=== PATIENT | male | born 1980 | race Caucasian/White ===

== ENCOUNTER 2024-10-26 12:32 | Inpatient (IN) | payer OTHER ==
[2024-10-26 13:29] LABS: #Basophils 0.04 10x3/uL (0.0-0.2); %Basophils 0.3 % (0.0-1.0); %Eosinophils 0.4 % (0.0-10.0); %Lymphocytes 8.1 % (21.0-51.0); %Monocytes 4.9 % (0.0-10.0); Hematocrit 46.1 % (42.0-52.0); Hemoglobin 15.9 g/dL (14.0-18.0); Mean Corpuscular HGB CONC 34.5 g/dL (32.0-36.0); Mean Corpuscular Hemoglobin 29.8 pg (27.0-31.0); Mean Corpuscular Volume 86.3 fL (78.0-98.0); Platelet Count 351 10x3/uL (130-400); Red Blood Cell (RBC) Count 5.34 mill/uL (4.70-6.10)
[2024-10-26 13:43] LABS: ALT (SGPT) 37 U/L (8-55); AST (SGOT) 24 U/L (5-34); Albumin 4.5 g/dL (3.5-5.0); Alkaline Phosphatase 63 U/L (40-110); Anion Gap 14 mmol/L (10-20); BUN (Urea Nitrogen) 10 mg/dL (8.9-20.6); Bilirubin, Total 0.4 mg/dL (0.2-1.2); Calc. Creatinine Clearance 0 mL/min (70-130); Calcium 9.7 mg/dL (7.8-10.44); Carbon Dioxide 19 mmol/L (22-29); Chloride 107 mmol/L (98-107); Estimated GFR 105; Globulin 3.4 g/dL (2.4-3.5); Glucose 102 mg/dL (70-105); Protein, Total 7.9 g/dL (6.0-8.3); Sodium 136 mmol/L (136-145)
[2024-10-26] MEDS ORDERED: Dexamethasone 4 MG TAB ONE (13:48)
[2024-10-26] MEDS ORDERED: Acetaminophen 325 MG TAB PO PRN (15:59)
[2024-10-26] MEDS ORDERED: Dextrose 50% Abboject 50 ML SYRINGE SLOW IVP PRN (15:59)
[2024-10-26] MEDS ORDERED: Glucagon 1 MG/ML KIT IM PRN (15:59)
[2024-10-26] MEDS ORDERED: Dextrose 5% in Water 1,000 ML IV PRN (15:59)
[2024-10-26] MEDS ORDERED: Ondansetron ODT 4 MG TAB PO PRN (16:06)
[2024-10-26] MEDS ORDERED: hydrALAZINE 20 MG/ML VIAL SLOW IVP PRN (16:06)
[2024-10-26] MEDS ORDERED: Pregabalin 75 MG CAP ONE (16:18)
[2024-10-26] MEDS ORDERED: Pantoprazole 40 MG DR.TAB ONE (16:18)
[2024-10-26 18:53] VITALS: BMI 30.1
[2024-10-26 19:28] LABS: Prothrombin Time 13.1 sec (12.0-14.7)
[2024-10-26 19:29] LABS: PTT 26.8 sec (22.9-36.1)
[2024-10-26] MEDS: Pregabalin 75 MG CAP PO SCH (20:19)
[2024-10-26] MEDS: Pantoprazole 40 MG VIAL IVP SCH (20:19)
[2024-10-26] MEDS: Dexamethasone 4 mg/ml Vial SLOW IVP SCH (20:19)
[2024-10-26] MEDS: Famotidine/PF 20 mg/2ml Vial SLOW IVP SCH (20:19)
[2024-10-26] MEDS: Morphine 2 MG/ML VIAL SLOW IVP PRN (22:04)
[2024-10-26] MEDS: Ondansetron PF 4 MG/2 ML Vial IVP PRN (22:05)
[2024-10-27 02:22] LABS: #Basophils Less than 0.03 10x3/uL (0.0-0.2); #Eosinophils Less than 0.03 10x3/uL (0.0-0.7); %Basophils 0.2 % (0.0-1.0); %Lymphocytes 9.2 % (21.0-51.0); %Monocytes 2.5 % (0.0-10.0); %Neutrophils 87.7 % (42.0-75.0); Hematocrit 45.7 % (42.0-52.0); Hemoglobin 15.2 g/dL (14.0-18.0); Mean Corpuscular HGB CONC 33.3 g/dL (32.0-36.0); Mean Corpuscular Hemoglobin 29.2 pg (27.0-31.0); Mean Corpuscular Volume 87.9 fL (78.0-98.0); Mean Platelet Volume 9.1 fL (7.4-10.4); Platelet Count 342 10x3/uL (130-400)
[2024-10-27 02:41] LABS: Anion Gap 14 mmol/L (10-20); BUN (Urea Nitrogen) 11 mg/dL (8.9-20.6); Calc. Creatinine Clearance 150 mL/min (70-130); Calcium 9.6 mg/dL (7.8-10.44); Carbon Dioxide 21 mmol/L (22-29); Chloride 104 mmol/L (98-107); Estimated GFR 109; Glucose 167 mg/dL (70-105); Sodium 135 mmol/L (136-145)
[2024-10-27] MEDS: Morphine 2 MG/ML VIAL SLOW IVP SCH (05:37)
[2024-10-27] MEDS: HYDROcodone/Acetaminophen 5/325 mg Tablet PO PRN (10:42)
[2024-10-27] MEDS ORDERED: CEFAZOLIN 2 GM in Sodium Chloride 0.9% 100 ML IVPB SCH (12:00)
[2024-10-27] MEDS ORDERED: Thrombin 5000 UNITS/5 ML VIAL ONE (12:22)
[2024-10-27] MEDS ORDERED: fentaNYL PF 100 MCG/2 ML SYRINGE ONE (12:40)
[2024-10-27] MEDS ORDERED: PHENYLEPHRINE-NS 100 MCG/ML 10 ML SYRINGE ONE (12:40)
[2024-10-27] MEDS ORDERED: Ondansetron PF 4 MG/2 ML Vial ONE (12:40)
[2024-10-27] MEDS ORDERED: Rocuronium Bromide 10 MG/ML (10ML VIAL) ONE ×2 (12:40→13:59)
[2024-10-27] MEDS ORDERED: Dexamethasone 20 MG/5 ML VIAL ONE (12:40)
[2024-10-27] MEDS ORDERED: Glycopyrrolate 0.2 MG/ML 5 ML SYRINGE ONE (12:40)
[2024-10-27] MEDS ORDERED: Lidocaine 1% PF 5 ML VIAL ONE (12:40)
[2024-10-27] MEDS ORDERED: PROPOFOL 20 ML ONE (12:41)
[2024-10-27] MEDS ORDERED: Midazolam HCl 2 mg/2 ml Vial ONE (12:41)
[2024-10-27] MEDS ORDERED: HYDROmorphone 2 MG/ML VIAL ONE (12:45)
[2024-10-27] MEDS ORDERED: Sodium Chloride 0.9% 100 ML ONE (12:46)
[2024-10-27] MEDS ORDERED: CEFAZOLIN 1 GM VIAL ONE (12:46)
[2024-10-27] MEDS ORDERED: Vancomycin 1 GM VIAL ONE (12:58)
[2024-10-27] MEDS ORDERED: Labetalol HCl 100 MG/20 ML VIAL ONE (13:45)
[2024-10-27] MEDS ORDERED: SUGAMMADEX SODIUM 200 MG/2 ML VIAL ONE (14:56)
[2024-10-27] MEDS ORDERED: Sodium Chloride 0.9% 250 ML 250 ML ONE (14:57)
[2024-10-27] MEDS ORDERED: tiZANidine HCl 4 MG TAB PO PRN (15:30)
[2024-10-27] MEDS ORDERED: fentaNYL 50 mcg/mL 1 mL Vial ONE (15:46)
[2024-10-27] MEDS ORDERED: HYDROmorphone 0.5 MG/0.5 ML SYRINGE ONE (16:00)
[2024-10-27] MEDS ORDERED: Dexamethasone 4 mg/ml Vial ONE (17:15)
[2024-10-27] MEDS: Dexamethasone 1 MG TAB PO SCH (18:30)
[2024-10-27] MEDS: CEFAZOLIN 2 GM in Sodium Chloride 0.9% 100 ML IVPB SCH (21:08)
[2024-10-27] MEDS: Lactated Ringer's 1,000 ML IV SCH (21:15)
[2024-10-28 05:50] LABS: #Basophils Less than 0.03 10x3/uL (0.0-0.2); #Eosinophils Less than 0.03 10x3/uL (0.0-0.7); %Basophils 0.1 % (0.0-1.0); %Neutrophils 84.3 % (42.0-75.0); Hematocrit 41.3 % (42.0-52.0); Hemoglobin 13.7 g/dL (14.0-18.0); Mean Corpuscular HGB CONC 33.2 g/dL (32.0-36.0); Mean Corpuscular Hemoglobin 29.5 pg (27.0-31.0); Mean Platelet Volume 9.2 fL (7.4-10.4); Platelet Count 296 10x3/uL (130-400); RBC Distribution Width 13.2 % (11.5-14.5); Red Blood Cell (RBC) Count 4.64 mill/uL (4.70-6.10)
[2024-10-28 06:42] LABS: Anion Gap 12 mmol/L (10-20); BUN (Urea Nitrogen) 14 mg/dL (8.9-20.6); Calc. Creatinine Clearance 145 mL/min (70-130); Calcium 8.7 mg/dL (7.8-10.44); Carbon Dioxide 24 mmol/L (22-29); Chloride 103 mmol/L (98-107); Estimated GFR 107; Glucose 123 mg/dL (70-105); Potassium 3.8 mmol/L (3.5-5.1); Sodium 135 mmol/L (136-145)
[2024-10-29 08:41] VITALS: BP 124/80; TEMP 97.8
[2024-10-29] MEDS: Acetaminophen/Codeine 30-300mg Tablet PO PRN (08:53)
== END 2024-10-29 11:40 | disposition home or self-care (01) | DRG 471 ==
LOC: ERS 12:32 → IMCU/EMU 16:17 → SURG B 10-27 16:55
PROVIDERS: ADMIT Surgery; ATTEND Surgery
PROC: 0RB30ZZ Excision of Cervical Vertebral Disc, Open Approach (ICD-10-PCS; principal; 2024-10-27)
PROC: 0RG10A0 Fusion of Cervical Vertebral Joint with Interbody Fusion Device, Anterior Approach, Anterior Column, Open Approach (ICD-10-PCS; 2024-10-27)
DX: M48.02 Spinal stenosis, cervical region (principal); S14.105A Unspecified injury at C5 level of cervical spinal cord, initial encounter; S14.106A Unspecified injury at C6 level of cervical spinal cord, initial encounter; Z98.890 Other specified postprocedural states; M47.9 Spondylosis, unspecified; W18.30XA Fall on same level, unspecified, initial encounter; F17.220 Nicotine dependence, chewing tobacco, uncomplicated; Z79.899 Other long term (current) drug therapy
CPT/HCPCS: 36415; 70450; 70551; 72125; 72141; 80048; 80053; 85025; 85610; 85730; C1713; J0690; J1100; J1171; J2250; J2272; J2405; J2470; J2704; J3010; J3370; J3490; J7050; J7120; J8540